=== PATIENT | male | born 1975 | race Caucasian/White ===

== ENCOUNTER 2023-12-12 09:22 | Emergency (ER) | payer OTHER ==
[~2023-12-12] VITALS: Ht 170.2 cm; Wt 55.0 kg
[2023-12-12 09:27] VITALS: BP 198/114; PULSE 100; RESP 20; O2SAT 91
== END 2023-12-12 16:25 | disposition left against medical advice (07) ==
LOC: ER 09:22 → EDBD 09:22 → ER 16:25
DX: R05.9 Cough, unspecified (principal); Z53.21 Procedure and treatment not carried out due to patient leaving prior to being seen by health care provider